=== PATIENT | male | born 1960 | race Caucasian/White ===

== ENCOUNTER 2018-11-15 08:28 | Day surgery (SDC) | payer BC ==
[2018-11-12 10:09] VITALS: BMI 35.6
[~2018-11-15 08:28] MED LIST: LACTATED RINGERS 1,000 ML IV SCH
[2018-11-15 08:49] VITALS: TEMP 97.9
[2018-11-15] MEDS ORDERED: LIDOCAINE 1% INJ 10MG/ML (20 ML MDV) ONE (09:04)
[2018-11-15] MEDS ORDERED: PROPOFOL 10 MG/ML 20 ML VIAL IV ONE (09:04)
--- NOTE | 2018-11-15 09:06 | P.GSHP ---
History of Present Illness H&P Date: 11/15/18 Chief Complaint: Screening colonoscopy This a 58-year-old male who presents today for screening colonoscopy. Patient denies a significant GI complaints. Past Medical History Past Medical History: Hyperlipidemia History of Any Multi-Drug Resistant Organisms: None Reported Additional Past Surgical History / Comment(s): NECK- LUMP-BIOPSY/REMOVAL , RIGHT KNEE ARTHROSCOPIC Past Anesthesia/Blood Transfusion Reactions: No Reported Reaction Smoking Status: Never smoker - Past Family History Mother Family Medical History: No Reported History Medications and Allergies Home Medications Medication Instructions Recorded Confirmed Type DULoxetine HCL [Cymbalta] 30 mg PO DAILY 11/12/18 11/15/18 History Dextroamphetamine/Amphetamine 30 mg PO BID 11/12/18 11/15/18 History [Adderall] Allergies Allergy/AdvReac Type Severity Reaction Status Date / Time No Known Allergies Allergy Verified 11/15/18 08:41 Surgical - Exam Vital Signs Temp Pulse Resp BP Pulse Ox 97.9 F 67 17 148/81 94 L 11/15/18 08:46 11/15/18 08:46 11/15/18 08:46 11/15/18 08:46 11/15/18 08:46 - General well developed, well nourished, no distress - Eyes PERRL - ENT normal pinna - Neck no masses - Respiratory normal expansion - Cardiovascular Rhythm: regular - Abdomen Abdomen: soft, non tender Assessment and Plan Assessment: We'll perform screening colonoscopy.
--- NOTE | 2018-11-15 09:15 | P.OP ---
Date of Procedure: 11/15/18 Preoperative Diagnosis: Screening colonoscopy Postoperative Diagnosis: Normal colonoscopy Procedure(s) Performed: Colonoscopy Anesthesia: MAC Surgeon: Wilmar Mays Pathology: none sent Condition: stable Disposition: PACU Description of Procedure: PROCEDURE: The patient was placed on the endoscopy table in the lateral position. Digital rectal examination was performed which revealed no abnormalities. The prostate was symmetrical without nodules. Flexible colonoscope was then placed in the patient's anus and passed throughout the entire colon. The ileocecal valve was visualized. The cecum, ascending, transverse, descending and sigmoid colon were normal. The rectum was normal as well. There were no masses, polyps or diverticula noted in the entire colon. SUMMARY OF FINDINGS: Normal colonoscopy.
[2018-11-15 09:20] VITALS: RESP 16
[2018-11-15 09:34] VITALS: BP 136/84; PULSE 62
== END 2018-11-15 09:57 | disposition home or self-care (01) ==
LOC: ORWHC2ENDO 08:28
PROVIDERS: ATTEND Surgery
DX: Z12.11 Encounter for screening for malignant neoplasm of colon (principal); E78.5 Hyperlipidemia, unspecified; F39 Unspecified mood [affective] disorder; Z79.899 Other long term (current) drug therapy
CPT/HCPCS: J2001; J2704; G0121

== ENCOUNTER 2023-06-18 08:44 | Emergency (ER) | payer BC ==
[2023-06-18 09:10] LABS: Glucose,Whole Blood 124 mg/dL (70-110)
[2023-06-18 10:04] LABS: Basophils % (A) 1 %; Eosinophils # (A) 0.1 k/uL (0-0.7); Eosinophils % (A) 2 %; HCT 44.8 % (39.0-53.0); HGB 15.1 gm/dL (13.0-17.5); Lymphocytes # (A) 1.8 k/uL (1.0-4.8); Lymphocytes % (A) 29 %; MCH 31.3 pg (25.0-35.0); MCHC 33.8 g/dL (31.0-37.0); MCV 92.6 fL (80.0-100.0); Mean Platelet Volume 7.4; Monocytes # (A) 0.5 k/uL (0-1.0); Monocytes % (A) 9 %; Neutrophils # (A) 3.5 k/uL (1.3-7.7); Neutrophils % (A) 57 %; Platelet Count 223 k/uL (150-450); RBC 4.84 m/uL (4.30-5.90); RDW 12.4 % (11.5-15.5); WBC 6.1 k/uL (3.8-10.6)
--- NOTE | 2023-06-18 10:18 | XR ---
EXAMINATION TYPE: XR chest 2V DATE OF EXAM: 06/18/2023 COMPARISON: NONE HISTORY: Chest pressure and upper extremity tingling. TECHNIQUE: Frontal and lateral views of the chest are obtained. FINDINGS: There is no focal air space opacity, pleural effusion, or pneumothorax seen. The cardiac silhouette size is within normal limits. The osseous structures are intact. IMPRESSION: No acute cardiopulmonary process.
[2023-06-18 10:23] LABS: ALT 30 U/L (4-49); AST 27 U/L (17-59); African American GFR (CKD) >90 (>60 ml/min/1.73 sqM); Albumin 3.8 g/dL (3.5-5.0); Alkaline Phosphatase 103 U/L (38-126); Anion Gap 12 mmol/L; Blood Urea Nitrogen 23 mg/dL (9-20); Calcium 8.9 mg/dL (8.4-10.2); Carbon Dioxide 23 mmol/L (22-30); Chloride 105 mmol/L (98-107); Glucose 130 mg/dL (74-99); Lipase 52 U/L (23-300); Non-African American GFR(CKD) 81 (>60 ml/min/1.73 sqM); Potassium 4.2 mmol/L (3.5-5.1); Sodium 140 mmol/L (137-145); Total Bilirubin 0.8 mg/dL (0.2-1.3); Total Protein 7.1 g/dL (6.3-8.2)
[2023-06-18 10:27] LABS: INR 0.9 (<1.2); Partial Thromboplastin Time 24.8 sec (22.0-30.0); Prothrombin Time 10.3 sec (10.0-12.5)
--- NOTE | 2023-06-18 11:06 | ED ---
General Adult HPI - General Chief complaint: Neuro Symptoms/Deficit Stated complaint: Chest Pain Time Seen by Provider: 06/18/23 09:00 Source: patient Mode of arrival: wheelchair Limitations: no limitations - History of Present Illness Initial comments: 62-year-old male presents emergency department reporting to epigastric pain. States he ate a large meal last night. At 2 AM he began having some epigastric discomfort with some numbness in his bilateral arms. States that he was concerned he was having a heart attack. He does have a family history. His mother in her 50s due to an MT. He denies any cardiac issues himself but has never had a workup. Does admit to belching. Denies any shortness of breath. Admits to nausea without vomiting. He did not take any medications for his symptoms. Denies any weakness in his extremities. Denies chest pain. States that he has been under a lot of stress recently because of his job. He is supposed to be on metformin however has not been taking it as he is attempting to fight his diet. Upon hospital arrival the patient feels as if his pain is improved. He reports to feeling asymptomatic at this time. No other alleviating, precipitating or modifying factors - Related Data Home Medications Medication Instructions Recorded Confirmed DULoxetine HCL [Cymbalta] 30 mg PO DAILY 11/12/18 11/15/18 Dextroamphetamine/Amphetamine 30 mg PO BID 11/12/18 11/15/18 [Adderall] Allergies Allergy/AdvReac Type Severity Reaction Status Date / Time No Known Allergies Allergy Verified 06/18/23 08:51 Review of Systems ROS Statement: Those systems with pertinent positive or pertinent negative responses have been documented in the HPI. ROS Other: All systems not noted in ROS Statement are negative. Past Medical History Past Medical History: Diabetes Mellitus, Hyperlipidemia History of Any Multi-Drug Resistant Organisms: None Reported Additional Past Surgical History / Comment(s): NECK- LUMP-BIOPSY/REMOVAL , RIGHT KNEE ARTHROSCOPIC Past Anesthesia/Blood Transfusion Reactions: No Reported Reaction Past Psychological History: Depression Smoking Status: Former smoker Past Alcohol Use History: Occasional Past Drug Use History: Marijuana - Past Family History Mother Family Medical History: No Reported History General Exam Limitations: no limitations General appearance: alert, in no apparent distress Head exam: Present: atraumatic, normocephalic, normal inspection Eye exam: Present: normal appearance, PERRL, EOMI. Absent: scleral icterus, conjunctival injection, periorbital swelling ENT exam: Present: normal exam, mucous membranes moist Neck exam: Present: normal inspection. Absent: tenderness, meningismus, lymphadenopathy Respiratory exam: Present: normal lung sounds bilaterally. Absent: respiratory distress, wheezes, rales, rhonchi, stridor Cardiovascular Exam: Present: regular rate, normal rhythm, normal heart sounds. Absent: systolic murmur, diastolic murmur, rubs, gallop, clicks GI/Abdominal exam: Present: soft, normal bowel sounds. Absent: distended, tenderness, guarding, rebound, rigid Extremities exam: Present: normal inspection, full ROM, normal capillary refill. Absent: tenderness, pedal edema, joint swelling, calf tenderness Back exam: Present: normal inspection Neurological exam: Present: alert, oriented X3, CN II-XII intact Psychiatric exam: Present: normal affect, normal mood Skin exam: Present: warm, dry, intact, normal color. Absent: rash Course Vital Signs 06/18/23 06/18/23 08:45 11:23 Temperature 98.3 F 98.2 F Pulse Rate 65 57 L Respiratory 16 18 Rate Blood Pressure 154/89 141/95 O2 Sat by Pulse 96 96 Oximetry Medical Decision Making - Medical Decision Making Was pt. sent in by a medical professional or institution ([facility], [facility] [facility], urgent care, hospital, or snf...) When possible be specific @ -No Did you speak to anyone other than the patient for history (EMS, parent, family, police, friend...)? What history was obtained from this source @ -No Did you review nursing and triage notes (agree or disagree)? Why? @ -I reviewed and agree with nursing and triage notes Were old charts reviewed (outside hosp., previous admission, EMS record, old EKG, old radiological studies, urgent care reports/EKG's, snf records)? Report findings @ -No old charts were reviewed Differential Diagnosis (chest pain, altered mental status, abdominal pain women, abdominal pain men, vaginal bleeding, weakness, fever, dyspnea, syncope, headache, dizziness, GI bleed, back pain, seizure, CVA, palpatations, mental health, musculoskeletal)? @ -acs, panreatitis, cholelithiasis, cholecystitis EKG interpreted by me (3pts min.). @ -yes and demonstrates sinus bradycardia with a rate of 57. AL interval 180. QRS 102. QTC 410. no acute ST segment elevations or depressions X-rays interpreted by me (1pt min.). @ -yes and demonstrates no acute process CT interpreted by me (1pt min.). @ -None done U/S interpreted by me (1pt. min.). @ -None done What testing was considered but not performed or refused? (CT, X-rays, U/S, labs)? Why? @ -None What meds were considered but not given or refused? Why? @ -None Did you discuss the management of the patient with other professionals (professionals i.e. , PA, [employer], lab, RT, psych nurse, licensed social worker, triple air valve tester, teacher, business development officer, special education case manager)? Give summary @ -No Was smoking cessation discussed for >3mins.? @ -No Was critical care preformed (if so, how long)? @ -No Were there social determinants of health that impacted care today? How? (Homelessness, low income, unemployed, alcoholism, drug addiction, transportation, low edu. Level, literacy, decrease access to med. care, senior living, rehab)? @ -No Was there de-escalation of care discussed even if they declined (Discuss DNR or withdrawal of care, Hospice)? DNR status @ -No What co-morbidities impacted this encounter? (DM, HTN, Smoking, COPD, CAD, Cancer, CVA, ARF, Chemo, Hep., AIDS, mental health diagnosis, sleep apnea, morbid obesity)? @ -DM Was patient admitted / discharged? Hospital course, mention meds given and route, prescriptions, significant lab abnormalities, going to OR and other pertinent info. @ -Upon arrival patient was placed into room 5. Thorough history and physical exam was performed. IV access established. Laboratory studies are conducted. Chest x-rays performed. Upon return the results they are discuss with the patie aminta. He remained pain-free. At this time patient is stable for discharge home however he needs to follow up with his primary care doctor and have cardiac evaluation. Recommend echo and stress test. Return for any new or worsening symptoms. Patient agreeable to plan and was discharged in stable condition Undiagnosed new problem with uncertain prognosis? @ -yes Drug Therapy requiring intensive monitoring for toxicity (Heparin, Nitro, Insu ronna, Cardizem)? @ -No Were any procedures done? @ -No Diagnosis/symptom? @ -acute epigastric pain Acute, or Chronic, or Acute on Chronic? @ -acute Uncomplicated (without systemic symptoms) or Complicated (systemic symptoms)? @ -complicated Side effects of treatment? @ -No Exacerbation, Progression, or Severe Exacerbation? @ -No Poses a threat to life or bodily function? How? (Chest pain, USA, MT, pneumonia, PE, COPD, DKA, ARF, appy, cholecystitis, CVA, Diverticulitis, Homicidal, Suicidal, threat to staff... and all critical care pts) @ -No - Lab Data Result diagrams: 06/18/23 09:54 06/18/23 09:54 Lab Results 06/18/23 06/18/23 06/18/23 Range/Units 09:07 09:54 09:54 WBC 6.1 (3.8-10.6) k/uL RBC 4.84 (4.30-5.90) m/uL Hgb 15.1 (13.0-17.5) gm/dL Hct 44.8 (39.0-53.0) % MCV 92.6 (80.0-100.0) fL MCH 31.3 (25.0-35.0) pg MCHC 33.8 (31.0-37.0) g/dL RDW 12.4 (11.5-15.5) % Plt Count 223 (150-450) k/uL MPV 7.4 Neutrophils % 57 % Lymphocytes % 29 % Monocytes % 9 % Eosinophils % 2 % Basophils % 1 % Neutrophils # 3.5 (1.3-7.7) k/uL Lymphocytes # 1.8 (1.0-4.8) k/uL Monocytes # 0.5 (0-1.0) k/uL Eosinophils # 0.1 (0-0.7) k/uL Basophils # 0.0 (0-0.2) k/uL PT 10.3 (10.0-12.5) sec INR 0.9 (<1.2) APTT 24.8 (22.0-30.0) sec Sodium (137-145) mmol/L Potassium (3.5-5.1) mmol/L Chloride (98-107) mmol/L Carbon Dioxide (22-30) mmol/L Anion Gap mmol/L BUN (9-20) mg/dL Creatinine (0.66-1.25) mg/dL Est GFR (CKD-EPI)AfAm (>60 ml/min/1.73 sqM) Est GFR (CKD-EPI)NonAf (>60 ml/min/1.73 sqM) Glucose (74-99) mg/dL POC Glucose (mg/dL) 124 H (70-110) mg/dL POC Glu Lead Pastor ID Yanely Sanchez Calcium (8.4-10.2) mg/dL Magnesium (1.6-2.3) mg/dL Total Bilirubin (0.2-1.3) mg/dL AST (17-59) U/L ALT (4-49) U/L Alkaline Phosphatase (38-126) U/L Troponin I (0.000-0.034) ng/mL Total Protein (6.3-8.2) g/dL Albumin (3.5-5.0) g/dL Lipase (23-300) U/L 06/18/23 06/18/23 Range/Units 09:54 09:54 WBC (3.8-10.6) k/uL RBC (4.30-5.90) m/uL Hgb (13.0-17.5) gm/dL Hct (39.0-53.0) % MCV (80.0-100.0) fL MCH (25.0-35.0) pg MCHC (31.0-37.0) g/dL RDW (11.5-15.5) % Plt Count (150-450) k/uL MPV Neutrophils % % Lymphocytes % % Monocytes % % Eosinophils % % Basophils % % Neutrophils # (1.3-7.7) k/uL Lymphocytes # (1.0-4.8) k/uL Monocytes # (0-1.0) k/uL Eosinophils # (0-0.7) k/uL Basophils # (0-0.2) k/uL PT (10.0-12.5) sec INR (<1.2) APTT (22.0-30.0) sec Sodium 140 (137-145) mmol/L Potassium 4.2 (3.5-5.1) mmol/L Chloride 105 (98-107) mmol/L Carbon Dioxide 23 (22-30) mmol/L Anion Gap 12 mmol/L BUN 23 H (9-20) mg/dL Creatinine 1.01 (0.66-1.25) mg/dL Est GFR (CKD-EPI)AfAm >90 (>60 ml/min/1.73 sqM) Est GFR (CKD-EPI)NonAf 81 (>60 ml/min/1.73 sqM) Glucose 130 H (74-99) mg/dL POC Glucose (mg/dL) (70-110) mg/dL POC Glu Lead Pastor ID Calcium 8.9 (8.4-10.2) mg/dL Magnesium 2.0 (1.6-2.3) mg/dL Total Bilirubin 0.8 (0.2-1.3) mg/dL AST 27 (17-59) U/L ALT 30 (4-49) U/L Alkaline Phosphatase 103 (38-126) U/L Troponin I <0.012 (0.000-0.034) ng/mL Total Protein 7.1 (6.3-8.2) g/dL Albumin 3.8 (3.5-5.0) g/dL Lipase 52 (23-300) U/L Disposition Clinical Impression: Epigastric pain Disposition: HOME SELF-CARE Condition: Stable Instructions (If sedation given, give patient instructions): Epigastric Pain (ED) Additional Instructions: I think that you need a stress test and an echo of your heart because of your symptoms. Please call your primary care office to have this arranged. If you have any new or worsening symptoms, return to the emergency department Is patient prescribed a controlled substance at d/c from ED?: No Referrals: Abdiel Kaufman MD [Primary Care Provider] - 1-2 days Time of Disposition: 11:06
[2023-06-18 11:31] VITALS: BP 141/95; PULSE 57; RESP 18; TEMP 98.2
== END 2023-06-18 11:24 | disposition home or self-care (01) ==
LOC: EC 08:44
DX: R10.13 Epigastric pain (principal); E11.9 Type 2 diabetes mellitus without complications; F32.A Depression, unspecified; F12.90 Cannabis use, unspecified, uncomplicated; Z79.899 Other long term (current) drug therapy; Z87.891 Personal history of nicotine dependence
CPT/HCPCS: 36415; 71046; 80053; 83690; 83735; 84484; 85025; 85610; 85730; 93005; 99284

== ENCOUNTER → 2024-05-18 | Outpatient (CLI) | payer BC ==
[2024-05-18 12:00] LABS: African American GFR (CKD) >90 (>60 ml/min/1.73 sqM); Blood Urea Nitrogen 20 mg/dL (9-20); Non-African American GFR(CKD) 81 (>60 ml/min/1.73 sqM)
--- NOTE | 2024-05-18 14:42 | CT ---
EXAMINATION TYPE: CT abdomen pelvis wo/w con CT DLP: 3104 mGycm, Automated exposure control for dose reduction was used. DATE OF EXAM: 05/18/2024 1:38 PM COMPARISON: None CLINICAL INDICATION:Male, 63 years old with history of R31.1 MICRO HEMATURIA; MICRO HEMATURIA TECHNIQUE: Standard CT of the abdomen and pelvis before and after the uneventful administration of 100 mL Isovue 300 intravenously. Oral contrast was administered. Coronal and sagittal reformats were performed. FINDINGS: LOWER CHEST: Right lower lobe solid 9 mm pulmonary nodule (series 7, image 8). Small coronary artery calcifications. ABDOMEN LIVER: Diffusely hypoattenuating parenchyma. No focal lesion. GALLBLADDER AND BILE DUCTS: Unremarkable. PANCREAS: Unremarkable. SPLEEN: Unremarkable. ADRENAL GLANDS: Unremarkable. KIDNEYS AND URETERS: No evidence of hydronephrosis or renal calculus. The kidneys enhance symmetrical ly. Contrast demonstrated on the delayed phase. Subcentimeter left mid kidney nonenhancing cyst. No s uspicious enhancing renal mass. PELVIS BLADDER: Unremarkable REPRODUCTIVE: Unremarkable. ABDOMEN & PELVIS STOMACH AND BOWEL: Stomach and duodenum are unremarkable. No focal wall thickening or stranding infla mmatory changes. Enteric contrast reaches the rectum. No evidence of bowel obstruction. PERITONEUM: No evidence of pneumoperitoneum or free fluid. VASCULATURE: No evidence of aortic aneurysm. MUSCULOSKELETAL: No acute osseous abnormalities LYMPH NODES: No evidence for lymphadenopathy. SOFT TISSUE/ABDOMINAL WALL: Unremarkable IMPRESSION: 1. No acute abdominal/pelvic process. No evidence for obstructive uropathy or suspicious renal mass. 2. Right lower lobe 9 mm pulmonary nodule. Recommend CT chest in [address] [facility], , 05/18/2024 2:40 PM
== END | disposition home or self-care (01) ==
LOC: RADCTMAIN 11:13
PROVIDERS: ATTEND Urology
CPT/HCPCS: 36415; 74178; 82565; 84520

== ENCOUNTER → 2024-05-23 | Outpatient (CLI) | payer BC | END | disposition home or self-care (01) | LOC: LABWHC1 10:25 | PROVIDERS: ATTEND Urology | DX: R97.20 Elevated prostate specific antigen [PSA] (principal) | CPT/HCPCS: 36415; 84153 ==

== ENCOUNTER → 2024-08-11 | Outpatient (CLI) | payer BC ==
--- NOTE | 2024-08-13 11:47 | PE ---
EXAMINATION TYPE: PET CT fusion skull to thigh DATE OF EXAM: 08/11/2024 CLINICAL INDICATION:Male, 64 years old with history of C61 PROSTATE CANCER; TECHNIQUE: Following the intravenous administration of 4.44 mCi of Ga-68 Illuccix (PSMA), whole bod y images are performed from the skull base to the midthigh. Images are reviewed on the computer in t he coronal, axial, and sagittal planes. Reconstructed rotating images are created on independent wor kstation and reviewed on the computer. A non-contrast CT is performed in conjunction with the PET s can. CT DLP: 1051.63 mGycm, Automated exposure control for dose reduction was used. COMPARISON: CT 05/18/2024, PET/CT None, MRI: None FINDINGS: Mediastinal SUV mean is 1.7. Hepatic parenchyma SUV mean is 5.5. SKULL BASE AND NECK: No suspicious radiotracer activity. CHEST, MEDIASTINUM, AND HILAR REGION: No suspicious radiotracer activity. ABDOMEN AND PELVIS: Focal radiotracer activity most prominently throughout the left aspect of the prostate gland with a m aximum SUV of 21.8. MUSCULOSKELETAL STRUCTURES: No suspicious radiotracer activity. OTHER CT: Bilateral carotid bulb calcifications. Small fat filled right inguinal hernia. Redemonstrat ion of right lower lobe 9 mm pulmonary nodule. IMPRESSION: Radiotracer activity throughout the left aspect of the prostate gland likely representing reported pr ostate cancer. No other radiotracer uptake to suggest metastasis. [facility], , 08/13/2024 11:45 AM
== END | disposition home or self-care (01) ==
LOC: RADPETMAIN 15:04
PROVIDERS: ATTEND Urology
DX: C61 Malignant neoplasm of prostate (principal); R91.1 Solitary pulmonary nodule
CPT/HCPCS: 78815; A9596

== ENCOUNTER → 2024-10-01 | Outpatient (CLI) | payer BC ==
--- NOTE | 2024-10-01 18:17 | MR ---
EXAMINATION TYPE: MR Prostate wo/w con DATE OF EXAM: 10/01/2024 9:12 AM COMPARISON: 08/11/2024 CLINICAL INDICATION: Male, 64 years old with history of C61 Prostate cancer; Prostate Ca, Positive Bi opsy TECHNIQUE: Multi-planar, multi-sequence imaging of the pelvis is performed prior to and following the uncomplicated administration of bolus intravenous gadolinium. IV Contrast: 12 mL Gadobutrol Interpretive Criteria: PI-RADS v2.1 SERUM PSA: PSA 15.20 05-23-24 PSA 15.38 05-05-24 PSA 2.73 02-26-23 SURGICAL PATHOLOGY: No data available. FINDINGS: Prostatic dimensions: 4.4 x 6.2 x 3.8 cm. Ellipsoid Volume:54.28 (PSA density=0.28 ng/mL/mL) PROSTATE GLAND: Large mass in the left lateral predominant peripheral zone mid gland measuring 34 x 2 1 x 29 mm with nodular lateral margin is felt to extend beyond the capsule series 501 image 25. Nodul ar area more inferiorly near the floor the pelvis musculature series 501 image 15 present. All these areas demonstrate restricted diffusion with high DWI and low ADC signal (PI-RADS 5) SEMINAL VESICLES (SV): Symmetric and unremarkable. PERIPROSTATIC TISSUES: Unremarkable. LYMPH NODES: No enlarged pelvic lymph node. REMAINING PELVIS: Bladder wall is within normal limits given distention. No abnormal free or organized intrapelvic fluid collection. No pathologic bowel dilation or mural thickening. No hernia visualized OSSEOUS STRUCTURES: Heterogenous bone marrow with suspected with bone marrow reconversion. No suspicious osseous abnormality. IMPRESSION: 1. PI-RADS 5 Lesion in the left lateral peripheral zone, extending mid gland to apex measuring 34 x 2 1 x 29 mm. This likely extends beyond the capsule does extend down towards the floor of the pelvis. N o lymph nodes family visualized at this time. 2. Moderate BPH, estimated gland volume Ellipsoid Volume:54.28 (PSA density=0.28 ng/mL/mL) [facility], , 10/01/2024 6:14 PM
== END | disposition home or self-care (01) ==
LOC: RADMRIMAIN 07:53
PROVIDERS: ATTEND Urology
DX: C61 Malignant neoplasm of prostate (principal); N40.0 Benign prostatic hyperplasia without lower urinary tract symptoms
CPT/HCPCS: 72197; A9585

== ENCOUNTER → 2024-10-14 | Outpatient (CLI) | payer BC ==
[2024-10-14 14:02] LABS: Appearance,Urine Clear (Clear); Bilirubin,Urine Negative (Negative); Blood,Urine Negative (Negative); Color,Urine Yellow; Glucose,Urine (UA) Negative (Negative); Ketones,Urine Negative (Negative); Leukocyte Esterase,Urine Negative (Negative); Nitrite,Urine Negative (Negative); Protein,Urine Negative (Negative); Specific Gravity,Urine 1.029 (1.001-1.035); Urobilinogen,Urine <2.0 mg/dL (<2.0)
[2024-10-14 18:18] LABS: Basophils # (A) 0.03 X 10*3/uL (0.00-0.10); Basophils % (A) 0.5 %; Eosinophils # (A) 0.11 X 10*3/uL (0.04-0.35); Eosinophils % (A) 1.7 %; HGB 14.8 g/dL (13.0-17.0); Lymphocytes # (A) 2.39 X 10*3/uL (0.90-5.00); Lymphocytes % (A) 36.4 %; MCH 30.8 pg (27.0-32.0); MCHC 32.9 g/dL (32.0-37.0); MCV 93.8 FL (80.0-97.0); Mean Platelet Volume 9.8 FL (9.5-12.2); Monocytes # (A) 0.92 X 10*3/uL (0.20-1.00); NRBC Per 100 WBC 0 X 10*3/uL (0.00-0.01); Neutrophils % (A) 47.1 %; Platelet Count 270 X 10*3/uL (140-440); WBC 6.57 X 10*3/uL (4.50-10.00)
[2024-10-14 18:50] LABS: Blood Urea Nitrogen 16.5 mg/dL (9.0-27.0); Calcium 9.3 mg/dL (8.7-10.3); Carbon Dioxide 24.2 mmol/L (21.6-31.8); Chloride 104 mmol/L (96-109); Glucose 142 mg/dL (70-110); Potassium 4.2 mmol/L (3.5-5.5); Sodium 141 mmol/L (135-145)
== END | disposition home or self-care (01) ==
LOC: LABPAT 13:20
PROVIDERS: ATTEND Urology
DX: Z01.812 Encounter for preprocedural laboratory examination (principal); C61 Malignant neoplasm of prostate
CPT/HCPCS: 80048; 81003; 85025; 86850; 86900; 86901; 87086

== ENCOUNTER 2024-10-19 08:39 | Day surgery (SDC) | payer BC ==
--- NOTE | 2024-10-14 12:20 | P.HPIHPCON ---
History of Present Illness H&P Date: 10/14/24 Chief Complaint: Prostate cancer This is a 64-year-old male with history of Kegley 8 prostate cancer. Underwent a PSMA PET scan that showed no evidence of metastatic disease. Prostate MRI showed evidence of extraprostatic disease with possible invasion into the floor of the pelvis. Of note his pathology also showed evidence of intraductal carcinoma. Discussed with him that intraductal carcinoma is poorly responsive to radiation, and improved outcomes associated with surgery. Discussed with him the option of a robotic radical prostatectomy. Discussed with him the risk which include but not limited to bleeding, infection, urinary incontinence, erectile dysfunction. Discussed also risk of injury to the bladder and the rectum. Discussed also potential that his cancer might be unresectable given the extension into the pelvis and if this happens at that point we will have stopped the procedure. Discussed also given the extraprostatic extension he will most likely need postoperative radiation. Discussed also potential of cancer recurrence and progression even with surgery. He understood all the risk and agreed to proceed Consent for Procedure: I have explained the operation/procedure to the patient, including the risks, benefits, side effects, alternative therapies (including not receiving the proposed treatment or service), the likelihood of the patient achieving his/her goals, and potential recuperation problems for the procedure/sedation/analgesia, as well as any blood products, if indicated. I also explained to the patient the risks, benefits and side effects of the alternatives, as well as the risks related to not receiving the proposed procedure, care, treatment, or services. Past Medical History Past Medical History: Diabetes Mellitus, Hyperlipidemia History of Any Multi-Drug Resistant Organisms: None Reported Additional Past Surgical History / Comment(s): NECK- LUMP-BIOPSY/REMOVAL , RIGHT KNEE ARTHROSCOPIC Past Anesthesia/Blood Transfusion Reactions: No Reported Reaction Past Psychological History: Depression Smoking Status: Former smoker Past Alcohol Use History: Occasional Past Drug Use History: Marijuana - Past Family History Mother Family Medical History: No Reported History Medications and Allergies Home Medications Medication Instructions Recorded Confirmed Type DULoxetine HCL [Cymbalta] 30 mg PO DAILY 11/12/18 11/15/18 History Dextroamphetamine/Amphetamine 30 mg PO BID 11/12/18 11/15/18 History [Adderall] Allergies Allergy/AdvReac Type Severity Reaction Status Date / Time No Known Allergies Allergy Verified 06/18/23 08:51 Surgical - Exam - General no distress, no pain - Eyes normal ocular movement, no pale - ENT normal nares, normal mucosa - Respiratory normal expansion, normal respiratory effort - Abdomen Abdomen: soft, non tender - Psychiatric oriented to time, oriented to person, oriented to place Assessment and Plan Assessment: OR for robotic radical prostatectomy with bilateral pelvic lymph node dissection
[~2024-10-19 08:39] MED LIST changes: +HYDROmorphone 0.5 MG/0.5 ML SYRINGE IVP PRN; -LACTATED RINGERS 1,000 ML IV SCH
[2024-10-19] MEDS: IV FLUID CONTINUATION 1,000 ML IV ONE ×3 (09:17)
[2024-10-19 09:45] LABS: Glucose,Whole Blood 129 mg/dL (70-110)
[2024-10-19] MEDS: ONDANSETRON 4 MG/2 ML VIAL IVP ONE (09:56)
[2024-10-19] MEDS: DEXAMETHASONE SOD PHOSPHATE 4 MG/ML 1 ML VIAL IV ONE (09:56)
[2024-10-19] MEDS: LACTATED RINGERS 1,000 ML IV SCH (09:56)
[2024-10-19] MEDS: MIDAZOLAM 2 MG/2 ML VIAL IV PRN (10:10)
[2024-10-19] MEDS: HEPARIN SODIUM,PORCINE 5,000 UNIT/ML 1 ML VIAL SQ PRN (10:26)
--- NOTE | 2024-10-19 10:34 | P.ANPRN ---
Procedure Note - Anesthesia - Nerve Block Performed Bilateral Erector Spinae Single Time Out Performed: Yes Date of Procedure: 10/19/24 Procedure Start Time: 10:10 Procedure Stop Time: 10:15 Location of Patient: PreOp Indication: Acute Post-Operative Pain, Analgesia, Requested by Surgeon Sedation Type: Sedate with meaningful contact maintained Preparation: Sterile Prep Position: Prone Catheter: None Needle Types: Pajunk Needle Gauge: 21 Ultrasound used to visualize needle placement: Yes Ultrasound used to observe medication spread: Yes Injectate: 0.5% Ropivacaine (see comment for volume) (Ropiv 20ml+[id number], needle level L1---Each side) Blood Aspirated: No Pain Paresthesia on Injection Noted: No Resistance on Injection: Normal Image Stored and Saved: Yes Events: Uneventful and Well Tolerated
[2024-10-19] MEDS ORDERED: ROPIVACAINE 5 MG/ML 30 ML VIAL ONE (10:44)
[2024-10-19] MEDS ORDERED: LABETALOL 5 MG/ML VIAL MDV ONE (10:44)
[2024-10-19] MEDS ORDERED: ROCURONIUM 10 MG/ML (5 ML VIAL) IV ONE (10:44)
[2024-10-19] MEDS ORDERED: NEOSTIGMINE 1 MG/ML 10 ML VIAL ONE (10:44)
[2024-10-19] MEDS ORDERED: fentaNYL (PF) 50 MCG/ML 2 ML AMP ONE (10:44)
[2024-10-19] MEDS ORDERED: LIDOCAINE 1% INJ 10MG/ML (20 ML MDV) ONE (10:44)
[2024-10-19] MEDS ORDERED: DEXAMETHASONE SOD PHOSPHATE 4 MG/ML 1 ML VIAL ONE (10:44)
[2024-10-19] MEDS ORDERED: PROPOFOL 10 MG/ML 20 ML VIAL IV ONE (10:44)
[2024-10-19] MEDS ORDERED: SUCCINYLCHOLINE CHLORIDE 200 MG/10 ML VIAL IV ONE (10:44)
[2024-10-19] MEDS ORDERED: GLYCOPYRROLATE 0.2 MG/ML 2 ML VIAL ONE (10:44)
[2024-10-19] MEDS ORDERED: ONDANSETRON 4 MG/2 ML VIAL IVP PRN (10:54)
[2024-10-19] MEDS ORDERED: HYDROcodone/APAP 5-325MG 1 EACH TAB PO PRN (10:55)
[2024-10-19] MEDS: BUPIVACAINE (PF) 0.25% 30 ML VIAL SQ ONE ×2 (11:18→15:12)
[2024-10-19] MEDS: LACTATED RINGERS 1,000 ML IV ONE (14:58)
--- NOTE | 2024-10-19 15:23 | P.OP ---
Date of Procedure: 10/19/24 Preoperative Diagnosis: Prostate cancer Postoperative Diagnosis: Same Procedure(s) Performed: Robotic assisted laparoscopic radical prostatectomy with bilateral pelvic lymph node dissection. Implants: none Anesthesia: FLACAA Surgeon: Mikie Cintron Estimated Blood Loss (ml): 200 Pathology: other (Prostate, bilateral pelvic lymph nodes, bilateral seminal vesicle, left apical nodule) Condition: stable Disposition: PACU Indications for Procedure: This is a 64-year-old male with history of [place] 8 prostate cancer. Underwent a PSMA PET scan that showed no evidence of metastatic disease. Prostate MRI showed evidence of extraprostatic disease with possible invasion into the floor of the pelvis. Of note his pathology also showed evidence of intraductal carcinoma. Discussed with him that intraductal carcinoma is poorly responsive to radiation, and improved outcomes associated with surgery. Discussed with him the option of a robotic radical prostatectomy. Discussed with him the risk which include but not limited to bleeding, infection, urinary incontinence, erectile dysfunction. Discussed also risk of injury to the bladder and the rectum. Discussed also potential that his cancer might be unresectable given the extension into the pelvis and if this happens at that point we will have stopped the procedure. Discussed also given the extraprostatic extension he will most likely need postoperative radiation. Discussed also potential of cancer recurrence and progression even with surgery. He understood all the risk and agreed to proceed r Operative Findings: Extra prostatic extension along the left side, with invasion into the pelvic sidewall, and the neurovascular bundles. Significant difficulty dissecting the left side given these findings. An additional nodule was seen posterior to the urethra near the apex, this was independent of the prostate but highly suspicious for malignancy Description of Procedure: After preoperative antibiotics were started, the patient was taken to the operating room. Anesthesia was induced and the patient was placed in a supine position, with adequate padding of the pressure points, shoulders, back, legs and arms. He was then prepped and draped in the standard fashion. A critical pause was performed using two patient identifiers. A 16F lizarraga catheter was placed to gravity drainage. A pneumo-peritoneum was created with placement of a Veress needle to 20 mm Hg without complication, and a 8 Fr trocar was placed above the umbillicus. Under direct vision a 8mm robotic ports was placed lateral to each rectus slightly below the camera port. The left iliac fossa 8mm port was placed. The right cardiovascular physician assistant right iliac fossa 12mm port and right paramedian 5mm portwere placed. After the patient was placed in the trendelenberg position, the robot was then docked to the 8mm robotic ports and then each robotic arm and tower was checked in relation to the patient's legs and hands to avoid inadvertent compression. The peritoneal cavity was inspected. An inverted U-shaped incision began laterally to the left medial umbilical ligament and extended high across the midline to the right umbilical ligament. The limbs of the "U" extended to the level of the vasa on both sides. We next developed the preperitoneal space and the space of Retzius. Cautery was used to dissected the bladder away from the prostate. After the anterior bladder neck was incised and the bladder entered the the posterior bladder neck was exposed and the ureteral orifces identified. The posterior bladder neck was then incised and dissected away from the prostate. The vas and the seminal vesicles were now exposed and dissected to their insertions into the prostate and were not spared. The posterior layer of the Denonvillier's fascia was incised to enter don the plane between prostate and perirectal fat. Each lateral pedicle was controlled with vessel sealer, no nerve preservation was performed. Of note on the left side there was invasion into the pedicle, also there was invasion into the pelvic sidewall. I was able to enter the plane along the pedicle and the prostate was dissected posteriorly away from the rectum using the vessel sealer. There was no injury to the rectum during dissection. But of note the extraprostatic extension was abutting the rectum along the apex. At this time further laterally there was evidence of invasion into the pelvic sidewall. Using the hook I slowly dissected the muscle away from the extraprostatic extension at the level, of note small portion of the levator muscles needed to be removed in order to be able to remove the prostate as well it was fixed near the apex. At this time decision was made to transect urethra, and attempt to further dissect this starting from the apex and going down toward the base.The puboprostatic ligament was incised where it inserted into the apex of the prostate and a plane between urethra and dorsal venous complex developed to expose the anterior urethral surface. The anterior wall of the urethra was transected with the cut setting a few millimeters distal to the apex of the prostate. The dorsal vein was ligated using 3-0 V lock. After the urethra was transected at this point I was able to enter a plane in between the muscle and the extraprostatic extension area and was able to remove the prostate. On evaluation there did appear to be a nodule just posterior to the urethra at the level of the left apex, this was independent of the prostate, and this could be seen on the MRI imaging. I excised that nodule sharply and this was sent as a separate specimen. I was able to peel the urethra off of that nodule in the rectum off of the nodule and was removed intact without injury to the urethra or the rectum. bilateral obturator and external iliac lymph node packets were carefully dissected after careful visualization of the hypogastric artery and obturator nerve. There was careful attention paid to hemostasis with judicious use of cautery. The urethrovesical anastomosis was performed . the posterior denovillers was reapproximated using 3-0 V lock. A 6 and 9 inch 3-0 V-Lock suture was used to anastomose the urethra and bladder, starting at the 6:00 posterior position. Mucosa was secured in every stitch, to ensure a mucosa to mucosa anastomosis. The stitch was regularly cinched and the anastomosis tightened. Care was taken to not violate the ureteral orifices. The Lizarraga catheter was advanced, the bladder filled, and the anastomosis was tested, as described above. Anastomsis was watertight at 150 mL The periumbilical fascia was closed with 1-0-PDS suture in figure of eight fashion. All ports were closed with a subcuticular 4-0 monocryl and Dermabond. Sponge, instrument, and needle counts were correct at the end of the case x2. All specimens including prostate and lymph nodes were sent to pathology for diagnosis and will be available in a week. The patient tolerated the surgery well and without complication. He awoke without difficulty and was taken to the recovery room in stable condition. Given the difficulty of the case secondary to his advanced locally invasive prostate cancer with extraprostatic extension modifier 22 will be used to this for this case, in addition patient's BMI was 33.2 and he had significant amount of intrapelvic fat which made dissection more challenging.
[2024-10-19 15:57] LABS: Glucose,Whole Blood 180 mg/dL (70-110)
[2024-10-19] MEDS: DEXTROSE 5%-0.45% NACL 1,000 ML IV SCH (16:20)
[2024-10-19] MEDS: SCOPOLAMINE 1 MG/72 HR PATCH TRANSDERM ONE (16:20)
[2024-10-19] MEDS: KETOROLAC 15 MG/ML 1 ML VIAL IVP SCH (16:21)
[2024-10-19] MEDS: PATIENT'S OWN (Dextroamphetamine/Amphetamine [Adderall] 30 MG Tablet) PO SCH (16:21)
[2024-10-19] MEDS: HEPARIN SODIUM,PORCINE 5,000 UNIT/ML 1 ML VIAL SQ SCH (17:50)
--- NOTE | 2024-10-20 07:39 | P.DS ---
Providers Attending physician: Mikie Cintron MD Primary care physician: [facility] Course: This is a 64-year-old male with a history of prostate cancer. Underwent a robotic radical prostatectomy on October 19. Please see op note dated October 19 for surgery details. Patient is admitted to the hospital postoperatively. He did well in the postoperative period. He was discharged home on postop day #1 with the Arriaga catheter, at time of discharge he was tolerating a diet, ambulating, pain was controlled Plan - Discharge Summary Discharge Rx Participant: No New Discharge Prescriptions: New Ketorolac [Toradol] 10 mg PO Q6HR PRN #15 tab PRN Reason: Pain Ciprofloxacin HCl [Cipro] 500 mg PO Q12HR 3 Days #6 tab No Action Dextroamphetamine/Amphetamine [Adderall] 30 mg PO BID DULoxetine HCL [Cymbalta] 30 mg PO DAILY Atorvastatin [Lipitor] 40 mg PO DAILY Discharge Medication List DULoxetine HCL [Cymbalta] 30 mg PO DAILY 11/12/18 [History] Dextroamphetamine/Amphetamine [Adderall] 30 mg PO BID 11/12/18 [History] Atorvastatin [Lipitor] 40 mg PO DAILY 10/18/24 [History] Ciprofloxacin HCl [Cipro] 500 mg PO Q12HR 3 Days #6 tab 10/20/24 [Rx] Ketorolac [Toradol] 10 mg PO Q6HR PRN #15 tab 10/20/24 [Rx]
[2024-10-20 08:28] VITALS: BP 130/78; PULSE 81; RESP 17; TEMP 98.4
[2024-10-20] MEDS: ATORVASTATIN 40 MG TAB PO SCH (11:37)
[2024-10-20] MEDS: DULoxetine HCL 30 MG CAPSULE.DR PO SCH (11:38)
== END 2024-10-20 14:36 | disposition home or self-care (01) ==
LOC: OR 08:39 → 4SSUR 15:15 → OR 10-20 14:36
PROVIDERS: ATTEND Urology
DX: C61 Malignant neoplasm of prostate (principal); N40.2 Nodular prostate without lower urinary tract symptoms; G89.18 Other acute postprocedural pain; E11.9 Type 2 diabetes mellitus without complications; E78.5 Hyperlipidemia, unspecified; F90.9 Attention-deficit hyperactivity disorder, unspecified type; F41.9 Anxiety disorder, unspecified; F32.A Depression, unspecified; Z79.899 Other long term (current) drug therapy; Z87.891 Personal history of nicotine dependence
CPT/HCPCS: 38570; 55866; S2900; 64468; 88305; 88307; 88309

== ENCOUNTER → 2024-11-30 | Outpatient (CLI) | payer BC | END | disposition home or self-care (01) | LOC: LABWHC1 13:01 | PROVIDERS: ATTEND Urology | DX: C61 Malignant neoplasm of prostate (principal) | CPT/HCPCS: 36415; 84153 ==